=== PATIENT | male | born 1965 | race Asian ===

== ENCOUNTER 2020-01-20 10:10 | Day surgery (SDC) | payer OTHER ==
[~2020-01-20] VITALS: Ht 170.2 cm; Wt 81.5 kg
[~2020-01-20 10:10] MED LIST: ASCO-96 PO; ASPI81TA45 PO; BUPIVACAINE/PF 0.5% ONE; CHOL10003 PO; EPINEPHRINE 1 MG/ML, 1ML ONE
[2020-01-20] MEDS ORDERED: MIDAZOLAM 1 MG/ML, 2ML ONE (10:37)
[2020-01-20] MEDS ORDERED: FENTANYL PF 250 MCG/5ML ONE (10:38)
[2020-01-20] MEDS ORDERED: CHLORHEXIDINE 15 ML UDC MM ONE (11:00)
[2020-01-20] MEDS ORDERED: LACTATED RINGERS 1,000 ML IV SCH (11:00)
[2020-01-20] MEDS ORDERED: DEXAMETHASONE 4 MG/ML, 1ML ONE ×2 (13:00)
[2020-01-20] MEDS ORDERED: PROPOFOL 10 MG/ML, 20ML ONE (13:00)
[2020-01-20] MEDS ORDERED: ROCURONIUM 10MG/ML,5ML ONE (13:00)
[2020-01-20] MEDS ORDERED: KETOROLAC 30 MG/1 ML ONE (13:05)
[2020-01-20] MEDS ORDERED: ONDANSETRON 2MG/ML, 2ML ONE (13:05)
[2020-01-20] MEDS ORDERED: ONDANSETRON 2MG/ML, 2ML IVPush PRN (13:30)
[2020-01-20] MEDS ORDERED: MEPERIDINE/PF 25MG/0.5ML IVPush PRN (13:30)
[2020-01-20] MEDS ORDERED: HYDROmorphone 1 MG/ML, 1ML INJ IVPush PRN (13:30)
[2020-01-20] MEDS ORDERED: OXYcodone 5 MG/5 ML ORAL.SOL UDC PO PRN (13:30)
[2020-01-20] MEDS ORDERED: PROMETHAZINE 25 MG/ML, 1ML IVPush PRN (13:30)
[2020-01-20] MEDS ORDERED: LABETALOL 5MG/ML, 20ML IV PRN (13:30)
[2020-01-20] MEDS ORDERED: ACETAMINOPHEN 325 MG TABLET PO PRN (13:30)
[2020-01-20] MEDS ORDERED: hydrALAzine 20 MG/ML, 1ML IV PRN (13:30)
[2020-01-20] MEDS ORDERED: ACETAMINOPHEN 650 MG/20.3 ML UDC ONE (13:51)
[2020-01-20] MEDS ORDERED: OXYcodone 5 MG/5 ML ORAL.SOL UDC ONE (13:51)
[2020-01-20] MEDS ORDERED: ACETAMINOPHEN 325 MG TABLET ONE (13:52)
[2020-01-20] MEDS ORDERED: FENTANYL PF 100 MCG/2ML ONE (13:52)
[2020-01-20] MEDS: FENTANYL PF 100 MCG/2ML IV PRN ×2 (14:00→14:25)
== END 2020-01-20 16:30 | disposition home or self-care (01) ==
LOC: OUT 10:10
PROVIDERS: ATTEND Surgery
DX: K80.10 Calculus of gallbladder with chronic cholecystitis without obstruction (principal); K82.8 Other specified diseases of gallbladder; Z20.828 Contact with and (suspected) exposure to other viral communicable diseases; Z79.899 Other long term (current) drug therapy; Z87.891 Personal history of nicotine dependence
CPT/HCPCS: 47562; 87635; 88304; J0171; J1100; J1885; J2250; J2405; J2704; J3010; J7120

== ENCOUNTER → 2020-04-24 | Outpatient (CLI) | payer OTHER ==
[~2020-04-24] MED LIST changes: -BUPIVACAINE/PF 0.5% ONE; -EPINEPHRINE 1 MG/ML, 1ML ONE
== END | disposition home or self-care (01) ==
LOC: CFH 08:52
PROVIDERS: ATTEND Internal Medicine Cardiovascular Disease
DX: R00.2 Palpitations (principal); R06.02 Shortness of breath; R07.89 Other chest pain
CPT/HCPCS: 71046

== ENCOUNTER 2020-08-02 12:19 | Outpatient (CLI) | payer OTHER ==
[2020-08-02] MEDS ORDERED: OMNIPAQUE 350 MG/ML, 100ML BOTTLE ONE (13:40)
== END 2020-08-02 23:59 | disposition home or self-care (01) ==
LOC: CFH 12:19
PROVIDERS: ATTEND Family Medicine
DX: K29.70 Gastritis, unspecified, without bleeding (principal); K20.90 Esophagitis, unspecified without bleeding
CPT/HCPCS: 74177; Q9967